=== PATIENT | female | born 1945 | race Caucasian/White ===

== ENCOUNTER 2016-10-22 08:22 | Emergency (ER) | payer MEDICARE ==
[~2016-10-22] VITALS: Ht 157.5 cm; Wt 67.2 kg
[~2016-10-22 08:22] MED LIST: ALLO100T PO; AMLO5TAB PO; COLC0.6T70 PO; HYDR-2164 PO; HYOS0.124 SL; IRBE300T19 PO; LORA2TAB2 PO; MECL-103 PO; ONDA4TAB10 PO
[2016-10-22 08:25] VITALS: Ht 157.5 cm; Wt 67.2 kg
--- OUTSIDE RECORDS SUMMARY | 2016-10-22 08:27 | XMS REPORT | Continuity of Care Document ---
Author Author [facility] Organization [facility] Address Unknown Phone Unavailable Support Name Relationship Address Phone ZANE SALAZAR MD Caregiver [address] [place] [address] [place] [address] Unavailable GEOVANNI BARRERA DO Caregiver [address] [place] [address] Unavailable KEON HARGROVE Next Of Kin [address] [place] [address] Insurance Providers Guarantor Des Hargrove I Address [address] [place] [address] Email [email or web address] Payer Medicareadvantra Ppo Policy Number [id number] Subscriber's Name Des Hargrove I Relationship 18 Self Group Number [id number] Problems Active Problems Medical Problem Onset Date Status Abdominal discomfort Unknown Acute Abdominal discomfort Unknown Acute Anxiety Unknown Acute Anxiety Unknown Acute Atypical chest pain Unknown Acute Dehydration Unknown Acute Depression Unknown Acute Elevated LFTs Unknown Acute FLU-LIKE ILLNESS Unknown Acute Fracture of spinous process of lumbar vertebra Unknown Acute Gastritis Unknown Acute History of pyelonephritis Unknown Acute Hypertension Unknown Acute Influenza A Unknown Acute Leg pain, right Unknown Migraine headache Unknown Acute Nausea Unknown Acute Rheumatoid arthritis Unknown Acute UTI (lower urinary tract infection) Unknown Acute UTI (lower urinary tract infection) Unknown Acute Viral syndrome Unknown Acute Past Problems Medical Problem Onset Date Abdominal cramping Unknown Gout Unknown Right knee pain Unknown Vertigo Unknown Medications Current Home Medications Medication Dose Units Route Directions Days Qty Instructions Start Date Allopurinol 100 Mg Tablet 100 Mg Oral Daily 03/06/16 Amlodipine Besylate (Norvasc) 5 Mg Tablet 5 Mg Oral Daily Colchicine 0.6 Mg Tablet 0.6 Mg Oral Daily 03/06/16 Hydrochlorothiazide 25 Mg Tablet 25 Mg Oral Daily 01/19/13 Hyoscyamine Sulfate (Levsin-Sl) 0.125 Mg Tab.subl 0.125 Mg Sublingual Every 4 Hours as needed for Prn Orders 02/13/16 Irbesartan 300 Mg Tablet 300 Mg Oral Daily 05/18/15 Lorazepam 2 Mg Tablet 2 Mg Oral Three Times A Day as needed for Anxiety 03/06/16 Meclizine Hcl 25 Mg Tablet 25 Mg Oral Three Times A Day for Vertigo 5 Days 15 Tablet Take 1 tablet, by mouth, 2 times a day. 03/06/16 Ondansetron (Ondansetron Odt) 4 Mg Tab.rapdis 4 Mg Oral Q8h @ 0100/0900/ 1700 as needed for Nausea 02/13/16 Past Home Medications Medication Directions Ordered Status Alprazolam 0.5 Mg Tablet, Daily & Prn 02/20/10 Discontinued Ciprofloxacin Hcl (Cipro) 500 Mg Tablet, 500 Mg Oral Twice A Day 07/25/12 Discontinued Hydroxychloroquine Sulfate (Plaquenil) 200 Mg Tablet, 200 Mg Oral Twice A Day 07/25/12 Discontinued Lorazepam , Bedtime 02/20/10 Discontinued Meloxicam (Mobic) 7.5 Mg Tablet, 0 Oral 05/30/11 Discontinued Triamterene/Hydrochlorothiazid (Triamterene/Hctz 75/50 Tab) 1 Tab Tablet, Daily 02/20/10 Discontinued Social History Social History Problem Response Recorded Date/Time Onset Date Status Hx Substance Use No 03/06/2016 10:46am Not Applicable Not Applicable Hx Alcohol Use No 03/06/2016 10:46am Not Applicable Not Applicable Has the pt used tobacco in the last 12 months No 04/05/2016 3:55pm Not Applicable Not Applicable Tobacco Usage none 09/06/2015 8:00am Not Applicable Not Applicable Query Response Start Date Stop Date Smoking Status Never smoker Hospital Discharge Instructions No hospital discharge instructions. Plan of Care Discharge Date 04/05/16 5:10pm Prescriptions See Medication Section Functional Status No functional status results. Allergies, Adverse Reactions, Alerts Allergen Type Severity Reaction Status Last Updated Iodinated Contrast Media - IV Dye Allergy Unknown Active 04/05/16 Penicillin Allergy Severe THROAT SWELLS Active 04/05/16 Iodine Allergy Unknown Active 04/05/16 Codeine Allergy Intermediate NAUSEA, CRAWLY FEELING Active 04/05/16 shellfish derived Allergy Unknown Active 04/05/16 Immunizations Query Response on File Recorded Date/Time Hx Influenza Vaccination N REFUSED 04/05/16 3:55pm Hx Pneumococcal Vaccination N REFUSED 04/05/16 3:55pm Hx Tetanus, Diptheria, Pertussis UNKNOWN 11/26/14 8:29am Hx Influenza Vaccination N REFUSED 04/05/16 3:55pm Hx Tetanus, Diptheria, Pertussis UNKNOWN 11/26/14 8:29am Tdap Vaccine Hx NO SKIN DISRUPTIONS 05/18/15 2:55pm Vital Signs Acute Vital Signs Vital Response Date/Time Temperature (Fahrenheit) 99.4 deg F (96.8 - 99.1) 04/05/2016 4:17pm Temperature (Calculated Celsius) 37.30335 degrees C (36.0 - 37.3) 04/05/2016 4:17pm Pulse Rate (adult) 92 bpm (60 - 100) 04/05/2016 4:17pm Respiratory Rate 18 breaths/min (10 - 20) 04/05/2016 4:17pm O2 Sat by Pulse Oximetry 98 % (90 - 100) 04/05/2016 4:17pm Oxygen Delivery Method Room Air 04/05/2016 4:17pm Blood Pressure 164/83 mm Hg 04/05/2016 4:17pm Blood Pressure Source Automatic Cuff 04/05/2016 4:17pm Height (Feet) 5 feet 04/05/2016 4:16pm Height (Inches) 2.00 inches 04/05/2016 4:16pm Weight (Kilograms) 56.000 kg 04/05/2016 4:16pm Body Mass Index (BMI) 22.6 04/05/2016 4:16pm Results Laboratory Results Test Name Result Units Flags Reference Collection Date/Time Result Date/ Time Comments C-Reactive Protein < 5.0 MG/L 0-9 02/13/2016 1:33pm 02/13/2016 1:55pm Uric Acid 9.7 MG/DL H 2.5-7.5 02/13/2016 1:33pm 02/13/2016 3:49pm White Blood Count 5.5 T/MM3 4.5-11.0 03/06/2016 10:17am 03/06/2016 10: 29am Red Blood Count 3.73 M/MM3 L 4.00-5.20 03/06/2016 10:17am 03/06/2016 10: 29am Hemoglobin 12.6 GM/DL 12-16 03/06/2016 10:17am 03/06/2016 10:29am Hematocrit 36.9 % 36-46 03/06/2016 10:17am 03/06/2016 10:29am Mean Corpuscular Volume 98.9 UM3 80-100 03/06/2016 10:17am 03/06/2016 10:29am Mean Corpuscular Hemoglobin 33.8 UUG 26-34 03/06/2016 10:17am 2015 10:29am Mean Corpuscular Hemoglobin Concent 34.1 GM/DL 31-37 03/06/2016 10:17am 03/06/2016 10:29am RDW Standard Deviation 48.8 FL 36.9-50.2 03/06/2016 10:17am 03/06/2016 10:29am Platelet Count 271 T/MM3 130-400 03/06/2016 10:17am 03/06/2016 10:29am Mean Platelet Volume 9.2 UM3 L 9.4-12.4 03/06/2016 10:17am 03/06/2016 10 :29am Neutrophils (%) (Auto) 60.9 % 33-66 03/06/2016 10:17am 03/06/2016 10: 29am Lymphocytes (%) (Auto) 29.0 % 23-45 03/06/2016 10:17am 03/06/2016 10: 29am Monocytes (%) (Auto) 7.9 % 0-9.0 03/06/2016 10:17am 03/06/2016 10:29am Eosinophils (%) (Auto) 1.1 % 0-4 03/06/2016 10:17am 03/06/2016 10:29am Basophils (%) (Auto) 1.1 % 0-2 03/06/2016 10:17am 03/06/2016 10:29am Immature Granulocyte % (Auto) 0.0 % 0.0-0.5 03/06/2016 10:17am 2015 10:29am Absolute Neutrophils (auto) 3.3 T/MM3 1.8-7.7 03/06/2016 10:17am 2015 10:29am Absolute Lymphocytes (auto) 1.6 T/MM3 1-4.8 03/06/2016 10:17am 2015 10:29am Absolute Monocytes (auto) 0.4 T/MM3 0-0.8 03/06/2016 10:17am 2015 10:29am Absolute Eosinophils (auto) 0.1 T/MM3 0-0.5 03/06/2016 10:17am 2015 10:29am Absolute Basophils (auto) 0.1 T/MM3 0-0.2 03/06/2016 10:17am 2015 10:29am Absolute Immature Granulocyte (auto 0.00 T/MM3 0.00-0.03 03/06/2016 10: 17am 03/06/2016 10:29am Prothromb Time International Ratio 0.91 L 0.99-1.21 03/06/2016 10:m 03/06/2016 10:34am THERAPUTIC RANGE=2.00-3.00 FOR ANTI-THROMBOSIS THERAPUTIC RANGE=2.50-3.50 FOR IMPLANTED VALVE Activated Partial Thromboplast Time 29.3 SEC 24-36 03/06/2016 10:17am 03/06/2016 10:34am Icterus Index < 2 0-7 03/06/2016 10:17am 03/06/2016 11:12am Chemistry Specimen Hemolysis < 15 0-25 03/06/2016 10:17am 03/06/2016 11:12am 0-25: Specimen Exhibited No Hemolysis. Turbidity < 20 0-20 03/06/2016 10:17am 03/06/2016 11:12am Sodium Level 143 MEQ/L 134-144 03/06/2016 10:17am 03/06/2016 11:12am Potassium Level 3.8 MEQ/L 3.6-5 03/06/2016 10:17am 03/06/2016 11:12am Chloride Level 103 MEQ/L 98-107 03/06/2016 10:17am 03/06/2016 11:12am Carbon Dioxide Level 26 MEQ/L 22-30 03/06/2016 10:17am 03/06/2016 11: 12am Anion Gap 14 MEQ/L 5-15 03/06/2016 10:17am 03/06/2016 11:12am Blood Urea Nitrogen 20.0 MG/DL H 7-17 03/06/2016 10:17am 03/06/2016 11: 12am Creatinine 1.0 MG/DL 0.7-1.2 03/06/2016 10:03/06/2016 11:12am BUN/Creatinine Ratio 20 RATIO 6-26 03/06/2016 10:03/06/2016 11: 12am Glomerular Filtration Rate Calc 55 03/06/2016 10:03/06/2016 11 :12am Glucose Level 112 MG/DL H 65-110 03/06/2016 10:03/06/2016 11:12am Calculated Osmolality 279 MOSM/KG 261-280 03/06/2016 10:2015 11:12am Calcium Level 9.5 MG/DL 8.4-10.2 03/06/2016 10:03/06/2016 11:12am Total Bilirubin 0.80 MG/DL 0.20-1.30 03/06/2016 10:03/06/2016 11: 12am Alkaline Phosphatase 106 U/L 38-126 03/06/2016 10:03/06/2016 11: 12am Total Protein 7.6 G/DL 6.3-8.2 03/06/2016 10:03/06/2016 11:12am Albumin 4.3 G/DL 3.5-5.0 03/06/2016 10:03/06/2016 11:12am Globulin 3.3 G/DL 2.4-3.6 03/06/2016 10:03/06/2016 11:12am Albumin/Globulin Ratio 1.3 RATIO 1.1-2.2 03/06/2016 10:03/06/2016 11:12am Aspartate Amino Transf (AST/SGOT) 45 U/L H 14-36 03/06/2016 10:03/2016 11:12am Alanine Aminotransferase (ALT/SGPT) 44 U/L 9-52 03/06/2016 10:03/2016 11:12am Troponin I < 0.012 ng/ml 0-0.12 03/06/2016 10:03/06/2016 11:23am Troponin values with a difference of 55% increase from orginal troponin value represent a true biological DELTA value. (%increase Calc=Orginal Troponin value, divided by subsequent Troponin value, multiplied by 100) Urine Collection Type CLEANCATCH-MIDSTREAM 03/06/2016 10:40am 03/06 10:48am Urine Color YELLOW YELLOW 03/06/2016 10:40am 03/06/2016 10:48am Urine Turbidity CLEAR CLEAR 03/06/2016 10:40am 03/06/2016 10:48am Urine Specific [place] 1.025 1.015-1.025 03/06/2016 10:40am 2015 10:48am Urine pH 5.5 5.0-8.0 03/06/2016 10:40am 03/06/2016 10:48am Urine Leukocyte Esterase TRACE A NEGATIVE 03/06/2016 10:40am 2015 10:48am Urine Nitrite NEGATIVE NEGATIVE 03/06/2016 10:40am 03/06/2016 10: 48am Urine Protein NEGATIVE NEGATIVE 03/06/2016 10:40am 03/06/2016 10: 48am Urine Glucose (UA) NEGATIVE NEGATIVE 03/06/2016 10:40am 03/06/2016 10 :48am Urine Ketones NEGATIVE NEGATIVE 03/06/2016 10:40am 03/06/2016 10: 48am Urine Urobilinogen 0.2 EU/DL NORMAL 03/06/2016 10:40am 03/06/2016 10: 48am Urine Bilirubin NEGATIVE NEGATIVE 03/06/2016 10:40am 03/06/2016 10: 48am Urine Blood NEGATIVE NEGATIVE 03/06/2016 10:40am 03/06/2016 10:48am Urinalysis Comment MICROSCOPIC NOT IND. 03/06/2016 10:40am 2015 10:48am Procedures Procedure Status Date Provider(s) ROUTINE VENIPUNCTURE Completed 02/13/16 METABOLIC PANEL TOTAL CA Completed 02/13/16 ASSAY OF BLOOD/URIC ACID Completed 02/13/16 COMPLETE CBC W/AUTO DIFF WBC Completed 02/13/16 C-REACTIVE PROTEIN Completed 02/13/16 EXTREMITY STUDY Completed 02/13/16 THER/PROPH/DIAG INJ IV PUSH Completed 02/13/16 TX/PRO/DX INJ SAME DRUG ENVIRONMENTAL TEST TECHNICIAN Completed 02/13/16 EMERGENCY DEPT VISIT Completed 02/13/16 334914"INJECTION, KETOROLAC TROMETHAMINE, PER 15 MG" Completed 02/13/16 820262"INJECTION, KETOROLAC TROMETHAMINE, PER 15 MG" Completed 02/13/16 PLACE NEEDLE IN VEIN Completed 03/06/[address] HEAD/BRAIN W/O DYE Completed 03/06/16 COMPREHEN METABOLIC PANEL Completed 03/06/16 URINALYSIS AUTO W/O SCOPE Completed 03/06/16 ASSAY OF TROPONIN QUANT Completed 03/06/16 COMPLETE CBC W/AUTO DIFF WBC Completed 03/06/16 PROTHROMBIN TIME Completed 03/06/16 THROMBOPLASTIN TIME PARTIAL Completed 03/06/16 ELECTROCARDIOGRAM TRACING Completed 03/06/16 EMERGENCY DEPT VISIT Completed 03/06/16 [id number] ITEM OR SERVICE Completed 03/06/16 Encounters Encounter Location Arrival/Admit Date Discharge/Depart Date Attending Provider Departed Clinic [facility] 04/05/16 3:43pm 04/05/16 5:10pm ZANE SALAZAR MD Departed Emergency Room [facility] 03/06/16 9:50am 03/06/16 11: 50am SOTO HAYNES DO Departed Emergency Room [facility] 02/13/16 12:42pm 02/13/16 5: 18pm SOTO HAYNES DO
--- OUTSIDE RECORDS SUMMARY | 2016-10-22 08:27 | XMS REPORT | Continuity of Care Document ---
Author Author [facility] Organization [facility] Address Unknown Phone Unavailable Support Name Relationship Address Phone SOTO HAYNES DO Caregiver [address] [place] [address] Unavailable YVONGEOVANNI Mccord DO Caregiver [address] [place] [address] Unavailable KEON HARGROVE Next Of Kin [address] [place] [address] Insurance Providers Guarantor Des Hargrove I Address [address] [place] [address] Email [email or web address] Payer Medicareadperson memorial hospitalra o Policy Number [id number] Subscriber's Name Des Hargrove I Relationship 18 Self Group Number [id number] Advance Directives Directive Response Recorded Date/Time Advanced Directives Type None 03/06/16 9:55am Chief Complaint and Reason for Visit Chief Complaint Dizzy Reason for Visit Vertigo Problems Active Problems Medical Problem Onset Date [...] UTI (lower urinary tract infection) Unknown Acute Vertigo Unknown Acute Viral syndrome Unknown Acute Past Problems Medical Problem Onset Date Abdominal cramping Unknown Gout Unknown Right knee pain Unknown Medications Current Home Medications Medication Dose [...] tobacco in the last 12 months No 09/05/2015 5:14pm Not Applicable Not Applicable Tobacco Usage none 09/06/2015 8:00am Not Applicable Not Applicable Query Response Start Date Stop Date Smoking Status Never smoker Hospital Discharge Instructions No hospital discharge instructions. Plan of Care Discharge Date 03/06/16 11:50am Disposition 01 DISCHARGED HOME, SELF-CARE Condition at Discharge Improved Instructions/Education Provided DI for Vertigo Forms Provided Return to Work/School Permit Prescriptions See Medication Section Referrals GEOVANNI BARRERA DO Order Date: 1 Day Address: [address] [place] [address] [place] [address] Note: Additional Instructions/Education 1. Rest 2. Maintain Hydration 3. Continue Home Medications 4. Follow with Dr. [place] Care Plan and Goals Physician Care Plan Problem: 1. Vertigo Goal: 1. Rest 2. Maintain Hydration 3. Continue Home Medications 4. Follow with Dr. Barrera Instructions: 1. Take medications and follow care plan as discussed/written Functional Status No functional status results. Allergies, Adverse Reactions, Alerts Allergen Type Severity Reaction Status Last Updated Iodinated Contrast Media - IV Dye Allergy Unknown Active 03/06/16 Penicillin Allergy Severe THROAT SWELLS Active 03/06/16 Iodine Allergy Unknown Active 03/06/16 Codeine Allergy Intermediate NAUSEA, CRAWLY FEELING Active 03/06/16 shellfish derived Allergy Unknown Active 02/13/16 Immunizations Query Response on File Recorded Date/Time Hx Influenza Vaccination N REFUSED 09/05/15 5:14pm Hx Pneumococcal Vaccination N REFUSED 09/05/15 5:14pm Hx Tetanus, Diptheria, Pertussis UNKNOWN 11/26/14 8:29am Hx Influenza Vaccination N REFUSED 09/05/15 5:14pm Hx Tetanus, Diptheria, Pertussis UNKNOWN 11/26/14 8:29am Tdap Vaccine Hx NO SKIN DISRUPTIONS 05/18/15 2:55pm Vital Signs Acute Vital Signs Vital Response Date/Time Temperature (Fahrenheit) 98.2 deg F (96.8 - 99.1) 03/06/2016 9:55am Temperature (Calculated Celsius) 36.35364 degrees C (36.0 - 37.3) 03/06/2016 9:55am Pulse Rate (adult) 90 bpm (60 - 100) 03/06/2016 11:50am Respiratory Rate 16 breaths/min (10 - 20) 03/06/2016 11:50am O2 Sat by Pulse Oximetry 95 % (90 - 100) 03/06/2016 11:50am Blood Pressure 155/80 mm Hg 03/06/2016 11:50am Height (Feet) 5 feet 03/06/2016 9:55am Height (Inches) 2.00 inches 03/06/2016 9:55am Weight (Kilograms) 56.000 kg 03/06/2016 9:55am Body Mass Index (BMI) 22.0 03/06/2016 9:55am Results Laboratory Results Test Name Result Units Flags Reference Collection Date/Time Result Date/ Time Comments Stool Campylobacter PCR NEGATIVE NEGATIVE 12/22/2015 UNK 12/22/2015 10:31am Stool C. difficile Toxin (PCR) NEGATIVE NEGATIVE 12/22/2015 K 12/21 10:31am Stool Plesiomonas shigelloides PCR NEGATIVE NEGATIVE 12/22/2015 K 12/22/2015 10:31am Stool Salmonella PCR NEGATIVE NEGATIVE 12/22/2015 K 12/22/2015 10: 31am Stool Vibrio (PCR) NEGATIVE NEGATIVE 12/22/2015 K 12/22/2015 10: 31am Stool Vibrio cholera (PCR) NEGATIVE NEGATIVE 12/22/2015 K 2015 10:31am Stool Yersinia enterocolitica (PCR) NEGATIVE NEGATIVE 12/22/2015 K 12/22/2015 10:31am Stool Enteroaggregative E. coli PCR NEGATIVE NEGATIVE 12/22/2015 K 12/22/2015 10:31am Stool Enteropathogenic E. coli (PCR NEGATIVE NEGATIVE 12/22/2015 K 12/22/2015 10:31am Stool Enterotoxigenic Ecoli PCR NEGATIVE NEGATIVE 12/22/2015 K 10:31am Stool E. coli Shiga Toxins NEGATIVE NEGATIVE 12/22/2015 K 2015 10:31am Stool E coli O157 PCR N/A NA/NEG 12/22/2015 K 12/22/2015 10:31am Stool Shigella/EIEC (PCR) NEGATIVE NEGATIVE 12/22/2015 K 2015 10:31am Stool Cryptosporidium PCR NEGATIVE NEGATIVE 12/22/2015 K 2015 10:31am Stool Cyclospora species Detection NEGATIVE NEGATIVE 12/22/2015 K 12/22/2015 10:31am Stool Entamoeba (PCR) NEGATIVE NEGATIVE 12/22/2015 K 12/22/2015 10: 31am Stool Giardia Lamblia PCR NEGATIVE NEGATIVE 12/22/2015 K 2015 10:31am Stool Adenovirus (PCR) NEGATIVE NEGATIVE 12/22/2015 K 12/22/2015 10 :31am Stool Astrovirus (PCR) NEGATIVE NEGATIVE 12/22/2015 K 12/22/2015 10 :31am Stool Norovirus GI/GII PCR NEGATIVE NEGATIVE 12/22/2015 K 2015 10:31am Stool Rotavirus A PCR NEGATIVE NEGATIVE 12/22/2015 K 12/22/2015 10: 31am Stool Sapovirus (PCR) NEGATIVE NEGATIVE 12/22/2015 UNK 12/22/2015 10: 31am Lipase 211 U/L 23-300 01/06/2016 3:51pm 01/06/2016 4:57pm --- 1656 --- LIP previously reported as: < 200 U/L Urine WBC 3-5 /HPF 0-5 01/06/2016 4:08pm 01/06/2016 4:22pm Urine RBC 0-1 /HPF 0-3 01/06/2016 4:08pm 01/06/2016 4:22pm Urine Squamous Epithelial Cells 0-5 01/06/2016 4:08pm 01/06/2016 4: 22pm Urine Bacteria 1+ H NEGATIVE 01/06/2016 4:08pm 01/06/2016 4:22pm Urine Mucus PRESENT 01/06/2016 4:08pm 01/06/2016 4:22pm Urine Hyaline Casts 1-3 /LPF 01/06/2016 4:08pm 01/06/2016 4:22pm Urine Culture Indicated CULT NOT INDICATED 01/06/2016 4:08pm 2015 4:22pm C-Reactive Protein < 5.0 MG/L 0-9 02/13/2016 [...] Granulocyte (auto 0.00 T/MM3 0.00-0.03 03/06/2016 10: 03/06/2016 10:29am Prothromb Time International Ratio 0.91 L 0.99-1.21 03/06/2016 10:03/06/2016 10:34am THERAPUTIC RANGE=2.00-3.00 FOR ANTI-THROMBOSIS THERAPUTIC RANGE=2.50-3.50 FOR IMPLANTED VALVE Activated Partial Thromboplast Time 29.3 SEC 24-36 03/06/2016 10:03/06/2016 10:34am Icterus Index < 2 0-7 03/06/2016 10:03/06/2016 11:12am Chemistry Specimen Hemolysis < 15 0-25 03/06/2016 10:03/06/2016 11:12am 0-25: Specimen Exhibited No Hemolysis. Turbidity < 20 0-20 03/06/2016 10:03/06/2016 11:12am Sodium Level 143 MEQ/L 134-144 03/06/2016 10:03/06/2016 11:12am Potassium Level 3.8 MEQ/L 3.6-5 03/06/2016 10:03/06/2016 11:12am Chloride Level 103 MEQ/L 98-107 03/06/2016 10:03/06/2016 11:12am Carbon Dioxide Level 26 MEQ/L 22-30 03/06/2016 10:03/06/2016 11: 12am Anion Gap 14 MEQ/L 5-15 03/06/2016 10:03/06/2016 11:12am Blood Urea Nitrogen 20.0 MG/DL H 7-17 03/06/2016 10:03/06/2016 11: 12am Creatinine 1.0 MG/DL 0.7-1.2 03/06/2016 10:03/06/2016 11:12am BUN/Creatinine Ratio 20 RATIO 6-26 03/06/2016 10:03/06/2016 11: 12am Glomerular Filtration Rate Calc 55 03/06/2016 10:03/06/2016 11 :12am Glucose Level 112 MG/DL H 65-110 03/06/2016 10:03/06/2016 11:12am Calculated Osmolality 279 MOSM/KG 261-280 03/06/2016 10:2015 11:12am Calcium Level 9.5 MG/DL 8.4-10.2 03/06/2016 10:17am 03/06/2016 11:12am Total Bilirubin 0.80 MG/DL 0.20-1.30 03/06/2016 [...] CLEAR 03/06/2016 10:40am 03/06/2016 10:48am Urine Specific [place] 1.025 1.015-1.025 03/06/2016 10:40am 2015 10:48am Urine [...] MICROSCOPIC NOT IND. 03/06/2016 10:40am 2015 10:48am Name: DES HARGROVE I Unit #: [id number] : 1945 Sex: F Admit Date: Loc / Svc: ED Discharge Date: DIAGNOSTIC IMAGING REPORT Report #: [id number] [facility] ELOISE Gloria Indication: ITS.REASON: vertigo with dizziness and nausea starting this morning PROCEDURE: CT HEAD W/O CONTRAST: Encounter: Initial Comparison: Head CT dated November 26, 2014 Technique: Axial CT images through the head were performed without contrast. FINDINGS: The ventricles are of normal size, shape, and contour for the patient's age. There are scattered areas of low attenuation in the white matter which most likely represent changes from chronic microvascular ischemia. The brainstem, cerebellum, and cerebral hemispheres otherwise have a normal morphology and CT attenuation. There is no evidence of midline displacement. No hemorrhage, signs of acute territorial stroke, mass effect, mass lesions, or edema is evident. The visualized portions of the skull base, midface, and calvarium demonstrate no abnormality. The paranasal sinuses are well aerated and free of significant disease. The tympanic and mastoid cavities appear normal. IMPRESSION: No acute intracranial abnormality or hemorrhage. Stable head CT. . Procedures Procedure Status Date Provider(s) IADNA-DNA/RNA PROBE TQ 12-25 Completed 12/22/15 MRI JNT OF LWR EXTRE W/O DYE Completed 01/02/16 COMPREHEN METABOLIC PANEL Completed 01/06/16 URINALYSIS AUTO W/SCOPE Completed 01/06/16 ASSAY OF LIPASE Completed 01/06/16 COMPLETE CBC W/AUTO DIFF WBC Completed 01/06/16 HYDRATE IV INFUSION ADD-ON Completed 01/06/16 THER/PROPH/DIAG INJ IV PUSH Completed 01/06/16 TX/PRO/DX INJ NEW DRUG ADDON Completed 01/06/16 EMERGENCY DEPT VISIT Completed 01/06/16 [id number] ITEM OR SERVICE Completed 01/06/16 [id number]"INJECTION, HYDROMORPHONE, UP TO 4 MG" Completed 01/06/16 [id number]"INJECTION, ONDANSETRON HYDROCHLORIDE, PER 1 MG" Completed 01/06/16 310303"INFUSION, NORMAL SALINE SOLUTION , 1000 CC" Completed 01/06/16 ROUTINE VENIPUNCTURE Completed 02/13/16 METABOLIC PANEL TOTAL CA Completed 02/13/16 ASSAY OF BLOOD/URIC ACID Completed 02/13/16 COMPLETE CBC W/AUTO DIFF WBC Completed 02/13/16 C-REACTIVE PROTEIN Completed 02/13/16 EXTREMITY STUDY Completed 02/13/16 THER/PROPH/DIAG INJ IV PUSH Completed 02/13/16 TX/PRO/DX INJ SAME DRUG TILESETTER Completed 02/13/16 EMERGENCY DEPT VISIT Completed 02/13/16 [id number]"INJECTION, KETOROLAC TROMETHAMINE, PER 15 MG" Completed 02/13/16 199587"INJECTION, KETOROLAC TROMETHAMINE, PER 15 MG" Completed 02/13/16 Encounters Encounter Location Arrival/Admit Date Discharge/Depart Date Attending Provider Registered Emergency Room [facility] 03/06/16 9:50am SOTO HAYNES DO Departed Emergency Room [facility] 02/13/16 12:42pm 09/19/16 5: 18pm SOTO HAYNES DO Departed Emergency Room [facility] 01/06/16 3:00pm 01/06/16 5: 40pm MIKE GUEVARA MD Registered Clinic [facility] 01/02/16 8:35am GINA DANIELS MD Registered Clinic [facility] 12/22/15 9:04am APARNA STONE II, MD Recent Diagnosis
--- OUTSIDE RECORDS SUMMARY | 2016-10-22 08:27 | XMS REPORT | Continuity of Care Document ---
Author Author [facility] Organization [facility] Address Unknown Phone Unavailable Support Name Relationship Address Phone DALLASSOTO GUERRIER Caregiver [facility] [address] [place] [address] SAURABH CARL MD Caregiver [address] [place] [address] [place] [phone] KEON HARGROVE Next Of Kin [address] [place] [address] Insurance Providers Payer Name Policy Number Subscriber Name Relationship Medicareadvantra Ppo [id number] Des Hargrove I 18 Self Advance Directives Directive Response Recorded Date/Time Advanced Directives Type None 12/30/13 4:15pm Problems Medical Problems Problem Onset Date Status Anxiety Unknown Active Atypical chest pain Unknown Active Gastritis Unknown Active Anxiety Unknown Active Dehydration Unknown Active FLU-LIKE ILLNESS Unknown Active Abdominal discomfort Unknown Active Nausea Unknown Active Abdominal discomfort Unknown Active Medications Medication Dose Route Sig Days/Qty Instructions Order Date Discontinued Date Status Alprazolam DAILY & PRN 02/20/10 01/19/13 Discontinued Irbesartan 300 Mg PO DAILY 02/20/10 Active [Lorazepam] BEDTIME 02/20/10 02/20/10 Discontinued Triamterene/Hydrochlorothiazid DAILY 02/20/10 01/19/13 Discontinued Multivitamins 1 Tab PO DAILY 02/20/10 Active Meloxicam 0 PO 05/30/11 06/01/11 Discontinued Hydroxychloroquine Sulfate 200 Mg PO TWICE A DAY 07/25/12 01/19/13 Discontinued Citalopram Hydrobromide 40 Mg PO DAILY 07/25/12 Active Ciprofloxacin Hcl 500 Mg PO TWICE A DAY 07/25/12 01/19/13 Discontinued Hydrochlorothiazide 25 Mg PO DAILY 01/19/13 Active Amlodipine Besylate 5 Mg PO DAILY 30 Qty 06/01/13 Active Omeprazole 30 Qty 06/01/13 Active Lorazepam 1 Mg PO TWICE DAILY BREAKFAST & LUNCH 12/30/13 Active Lorazepam 2 Mg PO BEDTIME 12/30/13 Active Sulfamethoxazole/Trimethoprim 1 Tab PO TWICE A DAY 20 Qty 12/30/13 Active Cholestyramine/Sucrose 378 G PO TWO TO THREE TIMES A DAY 378 Qty Active Ondansetron 4 Mg PO EVERY 6-8 HOURS 15 Qty 12/30/13 Active Tramadol HCl 50 Mg PO EVERY 6-8 HOURS 20 Qty 12/30/13 Active Social History Social History Problem Response Recorded Date/Time Smoking Status Never smoker 12/30/2013 5:50pm Chewing Tobacco Status No 12/30/2013 5:50pm Hx Substance Use No 12/30/2013 5:50pm Hx Alcohol Use No 12/30/2013 5:50pm Has the pt used tobacco in the last 12 months No 06/01/2013 5:08pm Query Response Start Date Stop Date Smoking Status Never smoker Hospital Discharge Instructions No hospital discharge instructions. Plan of Care No plan of care. Functional Status Query Response Date Recorded Physical Hygiene Self December 30, 2013 5:50pm Disabilities Visual December 30, 2013 5:50pm Devices Used Glasses December 30, 2013 5:50pm Dressing Self December 30, 2013 5:50pm Ambulation Self December 30, 2013 5:50pm Diet Self December 30, 2013 5:50pm Mental Status Alert December 30, 2013 7:41pm Disabilities Visual December 30, 2013 5:50pm Devices Used Glasses December 30, 2013 5:50pm Physical Hygiene Self December 30, 2013 5:50pm Dressing Self December 30, 2013 5:50pm Ambulation Self December 30, 2013 5:50pm Diet Self December 30, 2013 5:50pm Allergies, Adverse Reactions, Alerts Allergen Type Severity Reaction Status Last Updated Iodinated Contrast Media - IV Dye Allergy Unknown Active 12/30/13 Penicillin Allergy Severe THROAT SWELLS Active 12/30/13 Iodine Allergy Unknown Active 12/30/13 Codeine Allergy Intermediate NAUSEA, CRAWLY FEELING Active 12/30/13 shellfish derived Allergy Unknown Active 12/30/13 Immunizations Name Given Type Hx Influenza Vaccination No Historical Hx Pneumococcal Vaccination Y 2 WEEKS AGO Historical Hx Tetanus, Diptheria, Pertussis UNKNOWN Historical Hx Influenza Vaccination No Historical Hx Tetanus, Diptheria, Pertussis UNKNOWN Historical Vital Signs Acute Vital Signs Vital Response Date/Time Temperature (Fahrenheit) 97.4 deg F (96.8 - 99.1) Temperature (Calculated Celsius) 36.38920 degrees C (36.0 - 37.3) Pulse Rate (adult) 87 bpm (60 - 100) Respiratory Rate 16 breaths/min (10 - 20) O2 Sat by Pulse Oximetry 97 % (90 - 100) Blood Pressure 141/79 mm Hg Height 5 ft 2 in Weight 158 lb Body Mass Index 28.0 kg/m^2 Results Test Source Date Result Interp. Ref. Range Comments Activated Partial Thromboplast Time May 11, 2013 9:10am 29.5 SEC N 24-36 Alanine Aminotransferase (ALT/SGPT) December 30, 2013 5:13pm 40 U/L N 9- 52 Albumin December 30, 2013 5:13pm 4.1 G/DL N 3.5-5.0 Albumin/Globulin Ratio December 30, 2013 5:13pm 1.4 RATIO N 1.1-2.2 Alkaline Phosphatase December 30, 2013 5:13pm 104 U/L N 38-126 Amylase Level December 30, 2013 5:13pm 90 U/L N 30-110 Anion Gap December 30, 2013 5:13pm 12 MEQ/L N 5-15 Aspartate Amino Transf (AST/SGOT) December 30, 2013 5:13pm 34 U/L N 14-36 BUN/Creatinine Ratio December 30, 2013 5:13pm 14 RATIO N 6-26 Basophils # (Auto) December 30, 2013 5:13pm 0.1 T/MM3 N 0-0.2 Basophils (%) (Auto) December 30, 2013 5:13pm 1.8 % N 0-2 Blood Urea Nitrogen December 30, 2013 5:13pm 15.0 MG/DL N 7-17 C-Reactive Protein July 27, 2012 5:30am < 5.0 MG/L 0-9 COMMENT TO BLOOD IN LAB Calcium Level December 30, 2013 5:13pm 8.7 MG/DL N 8.4-10.2 Calculated Osmolality December 30, 2013 5:13pm 274 MOSM/KG N 261-280 Carbon Dioxide Level December 30, 2013 5:13pm 25 MEQ/L N 22-30 Chloride Level December 30, 2013 5:13pm 105 MEQ/L N 98-107 Conjugated Bilirubin May 30, 2011 7:15pm 0.00 MG/DL N 0.00-0.30 Creatinine December 30, 2013 5:13pm 1.1 MG/DL N 0.7-1.2 Cryptosporidium Exam (LAB) December 26, 2009 4:15pm Send out - D-Dimer January 19, 2013 7:16pm 670 NG/ML H 0-230 <224 NG/ML= PRESUMPTIVE NEGATIVE FOR PE OR DVT>224 NG/ML=ADDITIONAL EVALUATION FOR PE OR DVT RECOMMENDED Eosinophils # (Auto) December 30, 2013 5:13pm 0.2 T/MM3 N 0-0.5 Eosinophils (%) (Auto) December 30, 2013 5:13pm 3.9 % N 0-4 Erythrocyte Sedimentation Rate June 01, 2013 4:55pm 6 MM/HR N 0-20 Giardia Antigen December 26, 2009 4:15pm Sent out - Globulin December 30, 2013 5:13pm 2.9 G/DL N 2.4-3.6 Glucose Level December 30, 2013 5:13pm 91 MG/DL N 65-110 Hematocrit December 30, 2013 5:13pm 37.3 % N 36-46 Hemoglobin December 30, 2013 5:13pm 12.5 GM/DL N 12-16 Lipase December 30, 2013 5:13pm 168 U/L N 23-300 Lymphocytes # (Auto) December 30, 2013 5:13pm 1.8 T/MM3 N 1-4.8 Lymphocytes (%) (Auto) December 30, 2013 5:13pm 39.8 % N 23-45 Magnesium Level May 11, 2013 9:10am 2.0 MG/DL N 1.6-2.3 Mean Corpuscular Hemoglobin December 30, 2013 5:13pm 31.8 UUG N 26-34 Mean Corpuscular Hemoglobin Concent December 30, 2013 5:13pm 33.5 GM/DL N 31-37 Mean Corpuscular Volume December 30, 2013 5:13pm 94.9 UM3 N 80-100 Mean Platelet Volume December 30, 2013 5:13pm 9.3 UM3 L 9.4-12.4 Monocytes # (Auto) December 30, 2013 5:13pm 0.4 T/MM3 N 0-0.8 Monocytes (%) (Auto) December 30, 2013 5:13pm 7.9 % N 0-9.0 Neutrophils # (Auto) December 30, 2013 5:13pm 2.1 T/MM3 N 1.8-7.7 Neutrophils (%) (Auto) December 30, 2013 5:13pm 46.4 % N 33-66 Ova and Parasites (LAB) December 26, 2009 4:15pm Sent out - VERBAL FROM STATE FOR OAP. "PARASITES NOT FOUND" CURRENTLYUNABLE TO PRINT REPORT. HARD COPY TO FOLLOW. TLW 01/02/10 --- 01/02/10 1014 --- OAP previously reported as: SENT OUT Platelet Count December 30, 2013 5:13pm 285 T/MM3 N 130-400 Potassium Level December 30, 2013 5:13pm 4.3 MEQ/L N 3.6-5 Prothromb Time International Ratio May 11, 2013 9:10am 0.93 N 0.86- 1.10 THERAPUTIC RANGE=2.00-3.00 FOR ANTI-THROMBOSIS THERAPUTIC RANGE=2.50- 3.50 FOR IMPLANTED VALVE RDW Standard Deviation December 30, 2013 5:13pm 44.0 FL N 36.9-50.2 Red Blood Count December 30, 2013 5:13pm 3.93 M/MM3 L 4.00-5.20 Sodium Level December 30, 2013 5:13pm 142 MEQ/L N 134-144 Stool for White Cells July 03, 2013 7:44am Positive - Thyroid Stimulating Hormone (TSH) May 11, 2013 9:10am 2.04 MIU/L N 0.47-4.68 Total Bilirubin December 30, 2013 5:13pm 0.10 MG/DL L 0.20-1.30 Total Protein December 30, 2013 5:13pm 7.0 G/DL N 6.3-8.2 Troponin I June 12, 2013 1:30am < 0.012 ng/ml 0-0.12 Unconjugated Bilirubin May 30, 2011 7:15pm 0.70 MG/DL N 0.00-1.10 Urine Bacteria June 12, 2013 3:15am None seen - Has specimen been collected/obtained? Y Urine Bilirubin December 30, 2013 4:55pm Negative - Has specimen been collected/obtained? Y Urine Blood December 30, 2013 4:55pm Negative - Has specimen been collected/obtained? Y Urine Collection Type December 30, 2013 4:55pm Voided-not cc-midstr - Has specimen been collected/obtained? Y Urine Color December 30, 2013 4:55pm Yellow - Has specimen been collected/obtained? Y Urine Culture Indicated June 12, 2013 3:15am Cult not set up - Has specimen been collected/obtained? Y Urine Glucose (UA) December 30, 2013 4:55pm Negative - Has specimen been collected/obtained? Y Urine Ketones December 30, 2013 4:55pm Negative - Has specimen been collected/obtained? Y Urine Leukocyte Esterase December 30, 2013 4:55pm Negative - Has specimen been collected/obtained? Y Urine Mucus December 21, 2009 6:06pm Present - Has specimen been collected/obtained? Y Urine Nitrite December 30, 2013 4:55pm Negative - Has specimen been collected/obtained? Y Urine Protein December 30, 2013 4:55pm Negative - Has specimen been collected/obtained? Y Urine RBC June 12, 2013 3:15am None seen /HPF - Has specimen been collected/obtained? Y Urine Specific [place] December 30, 2013 4:55pm 1.020 - Has specimen been collected/obtained? Y Urine Squamous Epithelial Cells June 12, 2013 3:15am 0-5 - Has specimen been collected/obtained? Y Urine Transitional Epithelial Cells December 21, 2009 6:06pm 3-5 /HPF - Has specimen been collected/obtained? Y Urine Turbidity December 30, 2013 4:55pm Clear - Has specimen been collected/obtained? Y Urine Urobilinogen December 30, 2013 4:55pm 0.2 EU/DL - Has specimen been collected/obtained? Y Urine WBC June 12, 2013 3:15am 1-3 /HPF - Has specimen been collected/obtained? Y Urine pH December 30, 2013 4:55pm 6.0 - Has specimen been collected/ obtained? Y White Blood Count December 30, 2013 5:13pm 4.6 T/MM3 N 4.5-11.0 Chemistry Specimen Hemolysis December 30, 2013 5:13pm < 15 0-25 0-25: No Hemolysis.26-70: Slight Hemolysis - can falsely elevate K and Urine Protein. 71-285: Moderate Hemolysis - can falsely elevate K, Troponin I, CA 19-9, PTH, CSF GLucose, and Urine Protein, and can falsely decrease Phenytoin. 286-999: Gross Hemolysis - can falsely elevate K, Troponin I, CA 19-9, PTH, CSF Glucose, and Urine Protine, and can falsely decrease Phenytoin. Recommend specimen recollection. Urinalysis Comment December 30, 2013 4:55pm Microscopic not ind. - Has specimen been collected/obtained? Y Lab Scanned Report December 24, 2013 11:06am LAB TEST FORM REQUEST [id number] - Turbidity December 30, 2013 5:13pm < 20 0-20 Glomerular Filtration Rate Calc December 30, 2013 5:13pm 49 - Immature Granulocyte # (Auto) December 30, 2013 5:13pm 0.01 T/MM3 N 0.00- 0.03 Immature Granulocyte % (Auto) December 30, 2013 5:13pm 0.2 % N 0.0-0.5 Icterus Index December 30, 2013 5:13pm < 2 0-7 TY-Fup-[id number]-Type Natriuretic Peptide May 11, 2013 9:10am 324 PG/ML H 0 -175 Rule in cut points: <50 years old=450; 50-75 years old=900; >75 years old=1800; When utilizing ProBNP rule-in cut points, adjustment for impaired renal function is typically not required. Clostridium difficile Toxin (PCR) December 26, 2009 4:15pm Negative - If Toxin A is clinically indicated, treat accordingly. Clostridium difficile [id number] July 03, 2013 7:44am Negative - C. difficile Toxin B Gene (PCR) July 03, 2013 7:44am Negative - If Toxin A is clinically indicated, treat accordingly. Blood Culture Blood December 22, 2013 4:34pm NO GROWTH AFTER 5 DAYS Stool Culture Stool December 24, 2013 9:34am Helicobacter pylori Rapid Urease Gastric Biopsy January 11, 2010 1:51pm Giardia Antigen (BETSY) Stool July 03, 2013 7:44am Procedures No known history of procedures. Encounters Encounter Location Date/Time Departed Emergency Room [facility] 12/30/13 4:11pm Registered Clinic [facility] 12/24/13 10:34am Registered [facility] 12/22/13 4:30pm Recent Diagnosis
--- OUTSIDE RECORDS SUMMARY | 2016-10-22 08:27 | XMS REPORT | Continuity of Care Document ---
Author Author [facility] Organization [facility] Address Unknown Phone Unavailable Support Name Relationship Address Phone ABRIL ESQUIVEL MD Caregiver [address] [place] [address] [place] [phone] FLORENTINO ESQUIVEL MD Caregiver [address] [place] [phone] SAURABH CARL MD Caregiver [address] [place] [address] [place] [phone] KEON HARGROVE Next Of Kin [address] [place] [address] Insurance Providers Payer Name Policy Number Subscriber Name Relationship [facility] [id number] Des [place]arg[place] I 18 Self Advance Directives Directive Response Recorded Date/Time Advanced Directives Type None 06/11/14 9:05am Problems Medical Problems Problem Onset Date Status Anxiety Unknown Active Atypical chest pain Unknown Active Gastritis Unknown Active Anxiety Unknown Active Dehydration Unknown Active FLU-LIKE ILLNESS Unknown Active Abdominal discomfort Unknown Active Nausea Unknown Active Abdominal discomfort Unknown Active UTI (lower urinary tract infection) Unknown Active Vertigo Unknown Active Viral syndrome Unknown Active Elevated LFTs Unknown Active Medications Medication Dose Route Sig [...] PO DAILY 30 Qty 06/01/13 Active Omeprazole DAILY 30 Qty 06/01/13 Active Lorazepam 1 Mg PO TWICE DAILY BREAKFAST & LUNCH 12/30/13 Active Lorazepam 2 Mg PO BEDTIME 12/30/13 Active Ondansetron 4 Mg PO EVERY 6-8 HOURS 15 Qty 12/30/13 Active Meclizine HCl 25 Mg PO THREE TIMES A DAY PRN VERTIGO 30 Qty Take 1 tablet , by mouth, 2 times a day. 06/11/14 Active Ondansetron 4 Mg PO Q6H/0300,0900,1500,2100 PRN NAUSEA &/OR VOMITING 15 Qty 06/11/14 Active Ciprofloxacin HCl 1 Tab PO Q12H 10 Qty 06/11/14 Active Social History Social History Problem Response Recorded Date/Time Hx Substance Use No 06/11/2014 9:13am Hx Alcohol Use No 06/11/2014 9:13am Has the pt used tobacco in the last 12 months No 06/01/2013 5:08pm Tobacco Usage none 12/30/2013 5:05pm Query Response Start Date Stop Date Smoking Status Never smoker Hospital Discharge Instructions No hospital discharge instructions. Plan of Care No plan of care. Functional Status Query Response Date Recorded Physical Hygiene Self June 11, 2014 9:13am Disabilities Visual June 11, 2014 9:13am Devices Used Dentures Glasses June 11, 2014 9:13am Dressing Self June 11, 2014 9:13am Ambulation Self June 11, 2014 9:13am Diet Self June 11, 2014 9:13am Mental Status Alert June 11, 2014 11:01am Disabilities Visual June 11, 2014 9:13am Devices Used Dentures Glasses June 11, 2014 9:13am Physical Hygiene Self June 11, 2014 9:13am Dressing Self June 11, 2014 9:13am Ambulation Self June 11, 2014 9:13am Diet Self June 11, 2014 9:13am Allergies, Adverse Reactions, Alerts Allergen Type Severity [...] Vital Signs Vital Response Date/Time Temperature (Fahrenheit) 98.1 deg F (96.8 - 99.1) Temperature (Calculated Celsius) 36.65572 degrees C (36.0 - 37.3) Pulse Rate (adult) 76 bpm (60 - 100) Respiratory Rate 16 breaths/min (10 - 20) O2 Sat by Pulse Oximetry 100 % (90 - 100) Blood Pressure 154/74 mm Hg Height 5 ft 0 in Weight 151 lb Body Mass Index 29.0 kg/m^2 Results Test Source Date Result Interp. Ref. Range Comments Activated Partial Thromboplast Time May 11, 2013 9:10am 29.5 SEC N 24-36 Alanine Aminotransferase (ALT/SGPT) June 11, 2014 9:52am 92 U/L H 9- 52 Albumin June 11, 2014 9:52am 4.4 G/DL N 3.5-5.0 Albumin/Globulin Ratio June 11, 2014 9:52am 1.4 RATIO N 1.1-2.2 Alkaline Phosphatase June 11, 2014 9:52am 108 U/L N 38-126 Amylase Level December 30, 2013 5:13pm 90 U/L N 30-110 Anion Gap June 11, 2014 9:52am 9 MEQ/L N 5-15 Aspartate Amino Transf (AST/SGOT) June 11, 2014 9:52am 100 U/L H 14- 36 BUN/Creatinine Ratio June 11, 2014 9:52am 16 RATIO N 6-26 Basophils # (Auto) December 30, 2013 5:13pm 0.1 T/MM3 N 0-0.2 Basophils (%) (Auto) December 30, 2013 5:13pm 1.8 % N 0-2 Blood Urea Nitrogen June 11, 2014 9:52am 19.0 MG/DL H 7-17 C-Reactive Protein July 27, 2012 5:30am < 5.0 MG/L 0-9 COMMENT TO BLOOD IN LAB Calcium Level June 11, 2014 9:52am 9.0 MG/DL N 8.4-10.2 Calculated Osmolality June 11, 2014 9:52am 274 MOSM/KG N 261-280 Carbon Dioxide Level June 11, 2014 9:52am 29 MEQ/L N 22-30 Chloride Level June 11, 2014 9:52am 103 MEQ/L N 98-107 Conjugated Bilirubin May 30, 2011 7:15pm 0.00 MG/DL N 0.00-0.30 Creatinine June 11, 2014 9:52am 1.2 MG/DL N 0.7-1.2 Cryptosporidium Exam (LAB) December [...] 26, 2009 4:15pm Sent out - Globulin June 11, 2014 9:52am 3.1 G/DL N 2.4-3.6 Glucose Level June 11, 2014 9:52am 125 MG/DL H 65-110 Hematocrit June 11, 2014 9:51am 36.5 % N 36-46 Hemoglobin June 11, 2014 9:51am 12.9 GM/DL N 12-16 Lipase December 30, 2013 5:13pm 168 U/L N 23-300 Lymphocytes # (Auto) June 11, 2014 9:51am 1.4 T/MM3 N 1-4.8 Lymphocytes (%) (Auto) June 11, 2014 9:51am 30.3 % N 23-45 Magnesium Level May 11, 2013 9:10am 2.0 MG/DL N 1.6-2.3 Mean Corpuscular Hemoglobin June 11, 2014 9:51am 33.6 UUG N 26-34 Mean Corpuscular Hemoglobin Concent June 11, 2014 9:51am 35.3 GM/DL N 31-37 Mean Corpuscular Volume June 11, 2014 9:51am 95.1 UM3 N 80-100 Mean Platelet Volume June 11, 2014 9:51am 8.7 UM3 L 9.4-12.4 Monocytes # (Auto) June 11, 2014 9:51am 0.6 T/MM3 N 0-0.8 Monocytes (%) (Auto) June 11, 2014 9:51am 12.7 % H 0-9.0 Neutrophils # (Auto) June 11, 2014 9:51am 2.6 T/MM3 N 1.8-7.7 Neutrophils (%) (Auto) June 11, 2014 9:51am 57.0 % N 33-66 Ova and Parasites (LAB) December 26, 2009 4:15pm Sent out - [facility]BAL FROM [facility] FOR OAP. "PARASITES NOT FOUND" CURRENTLYUNABLE TO PRINT REPORT. HARD COPY TO FOLLOW. TLW 01/02/10 --- 01/02/10 1014 --- OAP previously reported as: SENT OUT Platelet Count June 11, 2014 9:51am 248 T/MM3 N 130-400 Potassium Level June 11, 2014 9:52am 3.7 MEQ/L N 3.6-5 Prothromb Time International Ratio May 11, 2013 9:10am 0.93 N 0.86- 1.10 THERAPUTIC RANGE=2.00-3.00 FOR ANTI-THROMBOSIS THERAPUTIC RANGE=2.50- 3.50 FOR IMPLANTED VALVE RDW Standard Deviation June 11, 2014 9:51am 47.3 FL N 36.9-50.2 Red Blood Count June 11, 2014 9:51am 3.84 M/MM3 L 4.00-5.20 Sodium Level June 11, 2014 9:52am 141 MEQ/L N 134-144 Stool for White Cells July 03, 2013 7:44am Positive - Thyroid Stimulating Hormone (TSH) May 11, 2013 9:10am 2.04 MIU/L N 0.47-4.68 Total Bilirubin June 11, 2014 9:52am 1.00 MG/DL N 0.20-1.30 Total Protein June 11, 2014 9:52am 7.5 G/DL N 6.3-8.2 Troponin I June 11, 2014 9:52am < 0.012 ng/ml 0-0.12 Unconjugated Bilirubin May 30, 2011 7:15pm 0.70 MG/DL N 0.00-1.10 Urine Bacteria June 11, 2014 10:12am None seen - Has specimen been collected/obtained? Y Urine Bilirubin June 11, 2014 10:12am Negative - Has specimen been collected/obtained? Y Urine Blood June 11, 2014 10:12am Negative - Has specimen been collected/obtained? Y Urine Collection Type June 11, 2014 10:12am Cleancatch-midstream - Has specimen been collected/obtained? Y Urine Color June 11, 2014 10:12am Yellow - Has specimen been collected/obtained? Y Urine Culture Indicated June 12, 2013 3:15am Cult not set up - Has specimen been collected/obtained? Y Urine Glucose (UA) June 11, 2014 10:12am Negative - Has specimen been collected/obtained? Y Urine Ketones June 11, 2014 10:12am Negative - Has specimen been collected/obtained? Y Urine Leukocyte Esterase June 11, 2014 10:12am 1+ H - Has specimen been collected/obtained? Y Urine Mucus December 21, 2009 6:06pm Present - Has specimen been collected/obtained? Y Urine Nitrite June 11, 2014 10:12am Negative - Has specimen been collected/obtained? Y Urine Protein June 11, 2014 10:12am Negative - Has specimen been collected/obtained? Y Urine RBC June 11, 2014 10:12am 0-1 /HPF - Has specimen been collected/obtained? Y Urine Specific [place] June 11, 2014 10:12am 1.015 - Has specimen been collected/obtained? Y Urine Squamous Epithelial Cells June 11, 2014 10:12am 0-5 - Has specimen been collected/obtained? Y Urine Transitional Epithelial Cells December 21, 2009 6:06pm 3-5 /HPF - Has specimen been collected/obtained? Y Urine Turbidity June 11, 2014 10:12am Clear - Has specimen been collected/obtained? Y Urine Urobilinogen June 11, 2014 10:12am 0.2 EU/DL - Has specimen been collected/obtained? Y Urine WBC June 11, 2014 10:12am 3-5 /HPF - Has specimen been collected/obtained? Y Urine pH June 11, 2014 10:12am 6.0 - Has specimen been collected/ obtained? Y White Blood Count June 11, 2014 9:51am 4.6 T/MM3 N 4.5-11.0 Chemistry Specimen Hemolysis June 11, 2014 9:52am < 15 0-25 0-25: No Hemolysis.26-70: Slight [...] 24, 2013 11:06am LAB TEST FORM REQUEST [id number] - Turbidity June 11, 2014 9:52am < 20 0-20 Glomerular Filtration Rate Calc June 11, 2014 9:52am 45 - Immature Granulocyte # (Auto) December 30, 2013 5:13pm 0.01 T/MM3 N 0.00- 0.03 Immature Granulocyte % (Auto) December 30, 2013 5:13pm 0.2 % N 0.0-0.5 Icterus Index June 11, 2014 9:52am < 2 0-7 UM-Gfs-D-Type Natriuretic Peptide May 11, 2013 9:10am 324 [...] Antigen (BETSY) Stool July 03, 2013 7:44am Name: DES HARGROVE I Unit #: [id number] : 1945 Sex: F Loc / Svc: ED DOS: 06/11/14 Signed Report #: [id number] DIAGNOSTIC IMAGING REPORT TYPE OF EXAM: CT HEAD W/O CONTRAST Dictated By: HOLLY LARA MD INDICATION: ITS.REASON: VERTIGO--ACUTE CT HEAD W/O CONTRAST: Comparison: June 12, 2013 Technique: Axial CT images through the head [...] well aerated and free of significant disease. Trace left mastoid effusion. IMPRESSION: No acute intracranial abnormality or hemorrhage. . Procedures No known history of procedures. Encounters Encounter Location Date/Time Departed Emergency Room [facility] 06/11/14 8:58am Recent Diagnosis
--- OUTSIDE RECORDS SUMMARY | 2016-10-22 08:27 | XMS REPORT | Continuity of Care Document ---
Author Author [facility] Organization [facility] Address Unknown Phone Unavailable Allergies Active Description Code Type Severity Reaction Onset Reported/Identified Relationship to Patient Clinical Status Yes Penicillins Drug Allergy Severe Anaphylaxis 03/02/2013 Medications Problems Date Dx Coded Attending Type Code Diagnosis Diagnosed By 03/02/2013 Dar Myers MD Final 780.2 SYNCOPE COLLAPSE 03/02/2013 Dar Myers MD Admitting 780.2 SYNCOPE COLLAPSE Procedures Results Encounters ACCT No. Visit Date/Time Discharge Status Pt. Type Provider Facility Loc./Unit Complaint [id number] 03/02/2013 06:40:00 2012 23:59:59 CLS Outpatient Dar Myers MD [facility]
[2016-10-22] MEDS ORDERED: AZITHROMYCIN 250 MG TABLET PO ONE (09:15)
[2016-10-22] MEDS ORDERED: ALBUTEROL/IPRATROPIUM INHAL. 2.5mg-0.5mg/3ml Neb. AEROSOL ONE (09:15)
--- NOTE | 2016-10-22 09:24 | ERPDOC ---
Departure Disposition Decision Date: October 22, 2016 Disposition Decision Time: 10:59 Disposition: 01 DISCHARGED HOME, SELF-CARE Impression Impression Impression: Primary Impression: Bronchitis Severity: Severe Condition: Improved Seen By: Physician only Referrals: GEOVANNI BARRERA DO (Family) 1 Week Patient Instructions: Acute Bronchitis (ED) Problems/Meds/Labs Reviewed?: Yes Medications reviewed and manag: Yes Additional Instructions: You have bronchitis. This is likely caused by an upper respiratory infection that is worsening some underlying asthma or COPD. Take the antibiotic and steroid as prescribed. Use the albuterol every 4 hours to help your breathing. Follow up with your doctor in the next week. Follow up care ordered?: Yes Mental Status: Alert, Oriented Scripts Prednisone (Prednisone) 20 Mg Tablet 60 MG PO DAILY for 5 Days, #15 TAB 0 Refills Take daily each morning Prov: 10/22/16 Azithromycin (Azithromycin) 250 Mg Tablet 1 TAB PO DAILY, #4 TAB TAKE 1 TABLET DAILY UNTIL ALL TAKEN. Prov: 10/22/16 HPI - Cough/URI General Chief Complaint: Cough,Fever,Flu,URI Stated Complaint: FEVER, COUGH, & CHEST TIGHTNESS Time Seen by Provider: 09:14 Source: patient Exam Limitations: no limitations HPI - Cough/URI Initial Comments 71yo woman presented to the ER today with cough, congestion, and fevers. Pt has had a cough, chest tightness, and dyspnea for the last week. Has tried OTC cough /cold/flu meds without relief of symptoms. No prior h/o lung dz. Occurred At: home Onset/Timing: Rapid, Getting worse Duration: 1 week Pain/Severity Scale: Now & Worst: 5/10 Prior Episodes/Possible Cause: no prior episodes Modifying Factors: IMPROVES WITH: lying down, rest, WORSE WITH: activity, coughing Associated Symptoms: chest pain/soreness, cough, headache, lightheadedness, nasal congestion, shortness of breath, sore throat Hx of Similar Symptoms: No Allergies: Coded Allergies: Penicillins (Verified Allergy, Severe, THROAT SWELLS, 10/22/16) codeine (Verified Allergy, Intermediate, NAUSEA, CRAWLY FEELING, 10/22/16) Iodinated Contrast Media - Oral and (Verified Allergy, Unknown, 10/22/16) iodine (Verified Allergy, Unknown, 10/22/16) anaphlactic reaction after eating shrimp shellfish derived (Verified Allergy, Unknown, 10/22/16) Past History Patient Surgical History EGD - GERD 10-30-2007 Dr. Don Colonscopy - hemorrhoids 10-30-2007 [facility] EGD - GERD, Hiatal hernia 01-01-2010 [facility] Colonoscoy - diverticulosis 01-01-2010 [facility] Fundoplication - at [place], she states it did not work Cholecystectomy 2006 [facility] KALI and right ovary - age 31, for fibroids appendectomy when 7 months - age 22 left menisus repair Past Medical History Metabolic: hypertension Cardiac: other Hx Echocardiogram: No GI: other Female: UTI, pyelonephritis Neurological: migraines Musculoskeletal: rheumatoid arthritis Psychological: anxiety, bipolar, depression Surgical History General: EGD, appendix, colonoscopy, gallbladder, tonsils Cardiac: other Reproductive/: hysterectomy Joint: knee Family History Family PMH: FOUND: COPD, asthma, hypertension Vaccines Hx Influenza Vaccination: No (REFUSED) Hx Pneumococcal Vaccination: No (REFUSED) Social History Does patient use chewing tobac: No Second Hand Exposure: No Substance Use Type: does not use Alcohol Intake: none Marital Status: Sexuality: male partner Housing: house Household Members: spouse Service: No Occupational Hazard: No Review of Systems Constitutional Constitutional: fever ENMT Sinuses: congestion, rhinorrhea Pulmonary Respiratory: cough, dyspnea All other Systems All Other Systems: Reviewed and Negative Physical Exam General General Nourishment: well nourished, well developed, appears stated age, no acute distress, adult, obese General Body Habitus: well groomed Vitals and Pain First Documented Vital Signs Date Time Temp Pulse Resp B/P Pulse Ox O2 Delivery O2 Flow Rate FiO2 10/22/16 08:25 98.5 97 22 184/94 97 Room Air Weight: Kilograms: 67.200 Height (feet): 5 Height (inches): 2.00 Triage Pain Scale: RN VS reviewed by Provider: Yes Eyes (brief) Eyes Brief: found: EOMI, PERRL, not found: scleral icterus ENMT (brief) ENMT Brief: FOUND: TM clear, TM good light reflex, ear canals clear, mucosa moist, nasal exudate, normal tonsils Neck (brief) Neck: FOUND: adenopathy, trachea midline, NOT FOUND: JVD, thyromegaly Respiratory (brief) Respiratory: FOUND: equal bilaterally, symmetrical, wheezes (Throughout), NOT FOUND: clear all diana, rales Cardiovascular (brief) Cardiac: FOUND: regular rate, regular rhythm, NOT FOUND: click, gallop, murmur , pedal edema, peripheral edema, rub Capillary Refill: <2 sec Pulses: all distal extremities, equal, strong Abdomen (brief) Abdominal Brief: FOUND: bowel normo active x4, soft, NOT FOUND: distended, hepatosplenomegaly, pulsatile mass, tender Lymphatic (brief) Lymphatic Brief: FOUND: adenopathy, NOT FOUND: lymphedema Musculoskeletal (brief) Musculoskeletal Brief: NOT FOUND: deformity, loss of motion, spasm, tenderness Integumentary (brief) Integumentary Brief: FOUND: pink, warm Neurologic (brief) Neurological Brief: FOUND: CN w/o gross def to obs, DTR 2/4 all extremities, gait w/o gross def to obs, motor-no gross deficits, sensory-no gross deficits, NOT FOUND: Babinski Psychiatric (brief) Psychiatric Brief: FOUND: alert, normal affect, oriented Differential Diagnoses Differential Diagnoses Considering: Acute Bronchitis, COPD Exacerbation, Influenza, Otitis Media, Pharyngitis, Pneumonia, Sinusitis, Viral Syndrome Progress Results/Orders Orders Procedure Category Date Status Time Bmp - Basic Metabolic LAB 10/22/16 Complete Panel 09:14 Probnp LAB 10/22/16 Complete 09:14 Cbc W/Auto LAB 10/22/16 Complete Diff-Reflex Manual 09:14 Influenza A/B By Pcr LAB 10/22/16 In Process 09:14 Chest, Pa & Lateral RAD 10/22/16 Resulted 09:14 Albuterol/Ipratropium PHA 10/22/16 Complete (Duoneb) 09:15 Oxygen Administration EDM 10/22/16 Transmitted 09:14 Methylprednisolone PHA 10/22/16 Complete Sod Succ (Solu-Medrol 09:15 Azithromycin PHA 10/22/16 Complete (Zithromax 250 Mg) 09:15 Albuterol (Ventolin PHA 10/22/16 Transmitted Hfa) 11:00 Inhaler Assist Device PHA 10/22/16 Transmitted - Spacer (Opticham 11:00 Lab Results Laboratory Tests Test 10/22/16 09:38 10/22/16 10:06 White Blood Count 7.6T/MM3 Red Blood Count 3.80M/MM3 Hemoglobin 12.7GM/DL Hematocrit 37.5% Mean Corpuscular Volume 98.7UM3 Mean Corpuscular Hemoglobin 33.4UUG Mean Corpuscular Hemoglobin Concent 33.9GM/DL RDW Standard Deviation 44.5FL Platelet Count 260T/MM3 Mean Platelet Volume 9.3UM3 Immature Granulocyte % (Auto) 0.1% Neutrophils (%) (Auto) 63.6% Lymphocytes (%) (Auto) 24.0% Monocytes (%) (Auto) 6.9% Eosinophils (%) (Auto) 4.5% Basophils (%) (Auto) 0.9% Absolute Immature Granulocyte (auto 0.01T/MM3 Absolute Neutrophils (auto) 4.9T/MM3 Absolute Lymphocytes (auto) 1.8T/MM3 Absolute Monocytes (auto) 0.5T/MM3 Absolute Eosinophils (auto) 0.3T/MM3 Absolute Basophils (auto) 0.1T/MM3 Turbidity < 20 Sodium Level 146MEQ/L Potassium Level 4.1MEQ/L Chloride Level 105MEQ/L Carbon Dioxide Level 27MEQ/L Anion Gap 14MEQ/L Blood Urea Nitrogen 17.0MG/DL Creatinine 0.8MG/DL Glomerular Filtration Rate Calc 71 BUN/Creatinine Ratio 21RATIO Glucose Level 109MG/DL Calculated Osmolality 284MOSM/KG Calcium Level 9.1MG/DL Icterus Index < 2 OT-Ogn-F-Type Natriuretic Peptide 127PG/ML Chemistry Specimen Hemolysis < 15 Influenza Virus Type A (PCR) Pending Influenza Virus Type B (PCR) Pending Medications Current ED Medications Albuterol/ Ipratropium (Duoneb) 3 ml O ONCE AEROSOL Last administered on 09:30; Start 10/22/16 at 09:15; Stop 10/22/16 at 09:17; Status DC Methylprednisolone Sodium Succinate (Solu-Medrol) 125 mg O ONCE IM Last administered on 10/22/16 09:53; Start 10/22/16 at 09:15; Stop 10/22/16 at 09:17 ; Status DC Azithromycin (ZITHROMAX 250 mg) 500 mg O ONCE PO Last administered on 09:53; Start 10/22/16 at 09:15; Stop 10/22/16 at 09:17; Status DC Progress Progress 71yo woman with bronchitis. Strong suspicion for underlying COPD. Will give atbx , steroid, and inhaler - pt to f/u with PCM for PFTs as outpt. Pt voiced understanding of dx, prognosis, tx, and f/u need. Xray Xray : Xray: CXR Portable Interpretation: Normal, Interpreted by SALIMA Almonte DO October 22, 2016 09:24
--- OUTSIDE RECORDS SUMMARY | 2016-10-22 09:27 | XMS REPORT | Continuity of Care Document ---
Author Author [facility] Organization [facility] Address Unknown Phone Unavailable Support Name Relationship Address Phone DALLASSOTO GUERRIER Caregiver [facility] [address] [place] [address] SAURABH CARL MD Caregiver [address] [place] [address] [place] [phone] KEON HARGROVE Next Of Kin [address] [place] [address] Insurance Providers Payer Name Policy Number Subscriber Name Relationship Medicareadvantra Ppo [id number] Des Hargrove I 18 Self Advance Directives [...] F (96.8 - 99.1) Temperature (Calculated Celsius) 36.32157 degrees C (36.0 - 37.3) Pulse Rate [...] Has specimen been collected/obtained? Y Urine Specific Jeremiah December 30, 2013 4:55pm 1.020 - Has [...] 24, 2013 11:06am LAB TEST FORM REQUEST [id number] - Turbidity December 30, 2013 5:13pm < 20 0-20 Glomerular Filtration Rate Calc December 30, 2013 5:13pm 49 - Immature Granulocyte # (Auto) December 30, 2013 5:13pm 0.01 T/MM3 N 0.00- 0.03 Immature Granulocyte % (Auto) December 30, 2013 5:13pm 0.2 % N 0.0-0.5 Icterus Index December 30, 2013 5:13pm < 2 0-7 SE-Vkm-I-Type Natriuretic Peptide May 11, 2013 9:10am 324 [...] Encounters Encounter Location Date/Time Departed Emergency Room [facility] 12/30/13 4:11pm Registered Clinic [facility] 12/24/13 10:34am Registered [facility] 12/22/13 4:30pm Recent Diagnosis
--- OUTSIDE RECORDS SUMMARY | 2016-10-22 09:27 | XMS REPORT | Continuity of Care Document ---
Author Author [facility] Organization [facility] Address Unknown Phone Unavailable Support Name Relationship Address Phone ABRIL ESQUIVEL MD Caregiver [address] [place] [address] [place] [phone] FLORENTINO ESQUIVEL MD Caregiver [address] [place] [address] SAURABH CARL MD Caregiver [address] [place] [address] [place] [phone] KEON HARGROVE Next Of Kin [address] [place] [address] Insurance Providers Payer Name Policy Number Subscriber Name Relationship [facility]advant[facility] [id number] Des Hargrove I 18 Self Advance Directives [...] F (96.8 - 99.1) Temperature (Calculated Celsius) 36.17601 degrees C (36.0 - 37.3) Pulse Rate [...] 2009 4:15pm Sent out - VERBAL FROM [facility] FOR [facility]. "PARASITES NOT FOUND" [...] Has specimen been collected/obtained? Y Urine Specific [place] June 11, 2014 10:12am 1.015 - Has [...] 24, 2013 11:06am LAB TEST FORM REQUEST [id number] - Turbidity June 11, 2014 9:52am < 20 0-20 Glomerular Filtration Rate Calc June 11, 2014 9:52am 45 - Immature Granulocyte # (Auto) December 30, 2013 5:13pm 0.01 T/MM3 N 0.00- 0.03 Immature Granulocyte % (Auto) December 30, 2013 5:13pm 0.2 % N 0.0-0.5 Icterus Index June 11, 2014 9:52am < 2 0-7 YP-Dwe-O-Type Natriuretic Peptide May 11, 2013 9:10am 324 [...] 7:44am Name: DES HARGROVE I Unit #: [id number] : 1945 Sex: F Loc / Svc: ED DOS: 06/11/14 Signed Report #: [id number] DIAGNOSTIC IMAGING REPORT TYPE OF EXAM: CT [...] Encounters Encounter Location Date/Time Departed Emergency Room [facility] 06/11/14 8:58am Recent Diagnosis
--- OUTSIDE RECORDS SUMMARY | 2016-10-22 09:28 | XMS REPORT | Continuity of Care Document ---
Author Author [facility] Organization [facility] Address Unknown Phone Unavailable Allergies Active Description [...] Status Pt. Type Provider Facility Loc./Unit Complaint [id number] 03/02/2013 06:40:00 2012 23:59:59 CLS Outpatient Dar Myers MD [facility]
[2016-10-22 09:30] VITALS: O2SAT 97
--- NOTE | 2016-10-22 09:30 | NUR ---
RT IN ROOM TO ADMINISTER BREATHING TX
[2016-10-22 09:43] LABS: BASOPHILS # (AUTO) 0.1 T/MM3 (0-0.2); BASOPHILS % (AUTO) 0.9 % (0-2); EOSINOPHILS # (AUTO) 0.3 T/MM3 (0-0.5); EOSINOPHILS % (AUTO) 4.5 % (0-4); HCT - HEMATOCRIT 37.5 % (36-46); HGB - HEMOGLOBIN 12.7 GM/DL (12-16); IMMATURE GRANULOCYTE # (AUTO) 0.01 T/MM3 (0.00-0.03); IMMATURE GRANULOCYTE % (AUTO) 0.1 % (0.0-0.5); LYMPHOCYTES # (AUTO) 1.8 T/MM3 (1-4.8); MEAN CORPUSCULAR HGB 33.4 UUG (26-34); MEAN CORPUSCULAR HGB CONC(MCHC 33.9 GM/DL (31-37); MEAN CORPUSCULAR VOLUME 98.7 UM3 (80-100); MEAN PLATELET VOLUME 9.3 UM3 (9.4-12.4); MONOCYTES # (AUTO) 0.5 T/MM3 (0-0.8); MONOCYTES % (AUTO) 6.9 % (0-9.0); NEUTROPHILS #(AUTO)-ABSOLUTE 4.9 T/MM3 (1.8-7.7); NEUTROPHILS % (AUTO) 63.6 % (33-66); WBC - WHITE BLOOD COUNT 7.6 T/MM3 (4.5-11.0)
--- NOTE | 2016-10-22 09:50 | NUR ---
RETURNED FROM RADIOLOGY
--- NOTE | 2016-10-22 09:54 | DI ---
INDICATION: ITS.REASON: Cough, congestion PROCEDURE: CHEST 2-VIEWS UPRIGHT (PA \T\ LAT) Encounter: Initial COMPARISON: November 26, 2014 FINDINGS: The lungs are clear without evidence of focal abnormal airspace opacity. Right lower lobe calcified granuloma. There is no pleural effusion or pneumothorax. Left-sided implanted cardiac device. The heart size, mediastinal contours and pulmonary vascularity are within normal limits. IMPRESSION: No acute cardiopulmonary disease. .
[2016-10-22 10:00] LABS: ANION GAP 14 MEQ/L (5-15); BUN/CREATININE RATIO 21 RATIO (6-26); CALCIUM 9.1 MG/DL (8.4-10.2); CHLORIDE 105 MEQ/L (98-107); CO2 - CARBON DIOXIDE 27 MEQ/L (22-30); CREATININE 0.8 MG/DL (0.7-1.2); GLOMERULAR FILTRATION RATE 71; GLUCOSE 109 MG/DL (65-110); POTASSIUM 4.1 MEQ/L (3.6-5); SODIUM 146 MEQ/L (134-144)
[2016-10-22 10:09] LABS: PROBNP 127 PG/ML (0-175)
[2016-10-22] MEDS ORDERED: ALBUTEROL HFA INHALER 8gm ORAL INH ONE (11:00)
[2016-10-22] MEDS ORDERED: INHALER ASSIST DEVICE (Optichamber) MC ONE (11:00)
[2016-10-22] MEDS ORDERED: PRED20TA PO (11:01)
[2016-10-22] MEDS ORDERED: AZIT250T6 PO (11:01)
[2016-10-22 11:20] VITALS: BP 164/74; PULSE 106; RESP 16; TEMP 98.5; O2SAT 98
== END 2016-10-22 11:20 | disposition home or self-care (01) ==
LOC: ED 08:22
DX: J40 Bronchitis, not specified as acute or chronic (principal)
CPT/HCPCS: 36415; 71020; 80048; 83880; 85025; 87502; 94640; 94664; 96372; 99283; A9270; J2930